=== PATIENT | male | born 1965 | race Caucasian/White ===

== ENCOUNTER 2017-03-20 07:26 | Emergency (ER) | payer OTHER ==
[2017-03-20 07:31] VITALS: BP 137/81; PULSE 95; TEMP 100; BMI 22.8
[2017-03-20] MEDS ORDERED: ACETAMINOPHEN 500 MG TABLET (FP) PO ONE (08:04)
[2017-03-20] MEDS ORDERED: ACETAMINOPHEN 325 MG TABLET (FP) ONE (08:12)
--- NOTE | 2017-03-20 08:24 | PDOC ---
History of Present Illness - General Chief Complaint: Cold Symptoms Stated Complaint: SORE THROAT HEADACHE Time Seen by Provider: 03/20/17 07:32 History Source: Patient Exam Limitations: No Limitations - History of Present Illness Initial Comments: 03/20/17 08:19 The patient is a 51M with a PMH of HTN who presents with his family for fever and sore throat. The sore throat started Sunday night and is accompanied with a fever. No headache or other symptoms. All: none Past History - Past Medical History Allergies/Adverse Reactions: Allergies Allergy/AdvReac Type Severity Reaction Status Date / Time No Known Allergies Allergy Verified 03/20/17 07:28 Home Medications: Ambulatory Orders NK [No Known Home Medication] 03/20/17 Other medical history: none - Psycho/Social/Smoking Cessation Hx Anxiety: No Suicidal Ideation: No Smoking Status: No Smoking History: Never smoked Have you smoked in the past 12 months: No Number of Cigarettes Smoked Daily: 0 Information on smoking cessation initiated: No Hx Alcohol Use: No Drug/Substance Use Hx: No Substance Use Type: None Review of Systems - Review of Systems Able to Perform ROS?: Yes Is the patient limited Iraqi proficient: No Constitutional: Yes: Fever. No: Chills HEENTM: Yes: Throat Pain, Throat Swelling, Difficulty Swallowing Respiratory: Yes: Cough. No: Shortness of Breath Cardiac (ROS): No: Chest Pain ABD/GI: No: Nausea, Vomiting, Other (abd pain) *Physical Exam - Vital Signs Last Vital Signs Temp Pulse Resp BP Pulse Ox 100.0 F H 95 H 18 137/81 100 03/20/17 07:28 03/20/17 07:28 03/20/17 07:28 03/20/17 07:28 03/20/17 07:28 - Physical Exam General Appearance: Yes: Appropriately Dressed, Apparent Distress HEENT: positive: Normal Voice, Tonsillar Exudate, Tonsillar Erythema, Hearing Grossly Normal Neck: negative: Lymphadenopathy (R), Lymphadenopathy (L) Respiratory/Chest: positive: Lungs Clear, Normal Breath Sounds. negative: Chest Tender, Respiratory Distress, Accessory Muscle Use Cardiovascular: positive: Regular Rhythm, Regular Rate, S1, S2 Gastrointestinal/Abdominal: positive: Flat, Soft. negative: Tender, Distended, Guarding Integumentary: positive: Dry, Warm Neurologic: positive: Motor Strength 5/5 ED Treatment Course - Medications Given in the ED: ED Medications Discontinued Medications Generic Name Dose Route Start Last Admin Trade Name Pedro PRN Reason Stop Dose Admin Acetaminophen 1,000 mg 03/20/17 08:04 03/20/17 08:17 Tylenol - PO 03/20/17 08:05 1,000 mg ONCE ONE Administration Medical Decision Making - Medical Decision Making 03/20/17 08:24 The patient is a 51M with PMH of HTN who presents with a low grade fever and throat pain. I have swabbed the patient and will administer tylenol for symptomatic relief. I will reassess when the swabs return. 03/20/17 10:08 Patient states that he feels better and is ready for d/c. *DC/Admit/Observation/Transfer Diagnosis at time of Disposition: Pharyngitis Qualifiers: Pharyngitis/tonsillitis etiology: unspecified etiology Qualified Code(s): J02.9 - Acute pharyngitis, unspecified - Discharge Dispostion Disposition: HOME Condition at time of disposition: Improved Admit: No - Patient Instructions Printed Discharge Instructions: DI for Viral Upper Respiratory Infection -- Adult Additional Instructions: Please return to the ER if symptoms persist, worsen, or if new symptoms arise. Please return to the ER if you have worsening fever, chills, sore throat, nausea , or vomiting. Please take tylenol or ibuprofen as needed for pain, fever, and sore throat. Por favor regrese a la cristopher de emergencias si los sntomas persisten, empeoran o si surgen nuevos sntomas. Por favor regrese a la cristopher de emergencias si tiene fiebre empeorando, escalofr os, dolor de garganta, nuseas o vmitos. Heber por favor el tylenol o el ibuprofen segn lo necesitado para el dolor, la fiebre, y el dolor de garganta. - Attestations Physician Attestion: 03/20/17 10:09 I, Dr. Jace Gibbs, attest that this document has been prepared under my direction and personally reviewed by me in its entirety. I further attest, that it accurately reflects all work, treatment, procedures and medical decision -making performed by me.
--- NOTE | 2017-03-20 08:34 | PDOC ---
Attending Attestation - Resident Resident Name: Jace Gibbs - ED Attending Attestation I have performed the following: I have examined & evaluated the patient, The case was reviewed & discussed with the resident, I agree w/resident's findings & plan, Exceptions are as noted - HPI HPI: 03/20/17 08:30 51M with HTN presents with 3 days of fevers and sore throat. Pt states that his and daughter are currently sick with the same symptoms. He denies RODRÍGUEZ, denies neck pain. Pt is able to tolerate fluids and food with minimal discomfort. Denies abdominal pain. Denies N/V/D. Denies CP/SOB/cough. Denies recent travel. Denies dysuria. - Physicial Exam PE: 03/20/17 08:33 "GENERAL: Awake, alert, and fully oriented, in no acute distress HEAD: No signs of trauma EYES: PERRLA, EOMI, sclera anicteric, conjunctiva clear ENT: Oropharynx with mild erythema. Auricles normal inspection, hearing grossly normal, nares patent. Moist mucosa NECK: Normal ROM, supple, no lymphadenopathy, JVD, or masses LUNGS: Breath sounds equal, clear to auscultation bilaterally. No wheezes, and no crackles HEART: Regular rate and rhythm, normal S1 and S2, no murmurs, rubs or gallops ABDOMEN: Nontender, No guarding, no rebound. Soft, normoactive bowel sounds. No masses. EXTREMITIES: Normal range of motion, no edema. No clubbing or cyanosis. No cords, erythema, or tenderness NEUROLOGICAL: Cranial nerves II through XII grossly intact. Normal speech, normal gait SKIN: Warm, Dry, normal turgor, no rashes or lesions noted. " - Medical Decision Making 03/20/17 08:33 51 M with HTN presents with fevers and sore throat. Likely viral pharyngitis as entire family is sick with similar symptoms. Will r/o strep throat with swab. Exam otherwise completely normal. Low suspicion for pulmonary process given lack of cough or rales/rhonchi on exam. No abdominal tenderness to suggest GI process. - Rapid strep - Tylenol
== END 2017-03-20 10:18 | disposition home or self-care (01) ==
LOC: JER 07:26
DX: J02.9 Acute pharyngitis, unspecified (principal); I10 Essential (primary) hypertension
CPT/HCPCS: 87070; 87430; 99281-25